=== PATIENT | male | born 1975 | race Two or more races ===

== ENCOUNTER 2022-04-20 11:36 | Emergency (ER) | payer OTHER ==
[~2022-04-20] VITALS: Ht 172.7 cm; Wt 77.1 kg
== END 2022-04-20 15:55 | disposition home or self-care (01) ==
LOC: ER 11:36
DX: R55 Syncope and collapse (principal); S09.90XA Unspecified injury of head, initial encounter; W18.30XA Fall on same level, unspecified, initial encounter; Y93.9 Activity, unspecified; Y92.9 Unspecified place or not applicable; S29.9XXA Unspecified injury of thorax, initial encounter; Z91.013 Allergy to seafood

== ENCOUNTER 2022-04-25 13:02 | Inpatient (IN) | payer OTHER ==
[~2022-04-25] VITALS: Ht 172.7 cm; Wt 72.6 kg
== END 2022-04-29 13:41 | disposition home or self-care (01) | DRG 312 ==
LOC: ER 13:02 → SURG 04-26 05:33
PROVIDERS: ADMIT Internal Medicine; ATTEND Internal Medicine
PROC: B343ZZ3 Ultrasonography of Right Common Carotid Artery, Intravascular (ICD-10-PCS; principal; 2022-04-25)
PROC: B030Y0Z Magnetic Resonance Imaging (MRI) of Brain using Other Contrast, Unenhanced and Enhanced (ICD-10-PCS; 2022-04-25)
PROC: B246ZZZ Ultrasonography of Right and Left Heart (ICD-10-PCS; 2022-04-25)
PROC: 4A12XM4 Monitoring of Cardiac Stress, External Approach (ICD-10-PCS; 2022-04-27)
DX: R55 Syncope and collapse (principal); Z20.822 Contact with and (suspected) exposure to COVID-19
CPT/HCPCS: 70552

== ENCOUNTER 2022-12-02 11:04 | Emergency (ER) | payer OTHER ==
[~2022-12-02] VITALS: Ht 170.2 cm; Wt 68.0 kg
== END 2022-12-02 17:09 | disposition home or self-care (01) ==
LOC: ER 11:04
DX: R10.11 Right upper quadrant pain (principal); Z88.0 Allergy status to penicillin; Z91.013 Allergy to seafood